=== PATIENT | male | born 1945 | race Caucasian/White ===

== ENCOUNTER 2022-08-10 12:52 | Emergency (ER) | payer BC ==
[2022-08-10 13:05] VITALS: BP 150/55; PULSE 58; RESP 18; TEMP 97.4; BMI 28.1
[2022-08-10] MEDS ORDERED: CEPHALEXIN MONOHYDRATE 500 MG CAPSULE (UD) PO ONE (15:54)
[2022-08-10] MEDS ORDERED: DIPHTH,PERTUSS(ACELL),TET 0.5 ML DISP.SYRIN IM ONE ×2 (15:54→15:57)
[2022-08-10] MEDS ORDERED: CEPHALEXIN MONOHYDRATE 500 MG CAPSULE (UD) ONE (15:56)
== END 2022-08-10 16:25 | disposition home or self-care (01) ==
LOC: JERFT 12:52
PROC: 3E0234Z Introduction of Serum, Toxoid and Vaccine into Muscle, Percutaneous Approach (ICD-10-PCS; principal; 2022-08-10)
DX: S60.941A Unspecified superficial injury of left index finger, initial encounter (principal); W23.0XXA Caught, crushed, jammed, or pinched between moving objects, initial encounter
CPT/HCPCS: 73130-TC-LT-FY; 90471; 90715; 99284-25